=== PATIENT | male | born 1945 | race Caucasian/White ===

== ENCOUNTER 2021-12-01 11:58 | Inpatient (IN) | payer MEDICARE, SELFPAY ==
[2021-12-01 12:40] VITALS: BP 149/69; PULSE 70; RESP 18; TEMP 36.4; O2SAT 98; BMI 41.5
--- NOTE | 2021-12-01 12:50 | DI.RAD.S_ITS ---
PROCEDURE: XR TOE LT MIN 2V INDICATIONS: infection TECHNIQUE: 3 views of the 3rd toe(s) acquired. COMPARISON: None. FINDINGS: Bones: Rarefaction of the distal 3rd phalanx. Amputation taken of the 2nd and 1st distal phalanx. Generalized forefoot osteopenia present as well. Arthritic changes noted in the midfoot Soft tissues: No suspicious soft tissue densities. IMPRESSION: Focal rarefaction of the distal 3rd phalanx with overlying soft tissue swelling, consistent with cellulitis/osteomyelitis. Approved by: Tevin Fall M.D. on 12/01/2021 at 14:04
--- NOTE | 2021-12-01 15:01 | ED.WOUNDLAC ---
HPI - Wound/Laceration <ROSHAN Hernandez - Last Filed: 12/01/21 20:06> General Chief Complaint: Wound/Laceration Stated Complaint: Bad 3rd toe on left foot Time Seen by Provider: 12/01/21 13:46 Source: patient Mode of arrival: Family Vehicle History of Present Illness HPI narrative: 75-year-old male, nonsmoker, with a history of diabetes, presents to the emergency department with left foot 3rd toe suspected infection. Patient had recently seen his restorative coordinator who was able to whittle away at his toenails. Patient saw his family doctor on [place] yesterday who recommended he come into the emergency department for IV antibiotics. Patient denies any recent trauma to the toe but it does have a large scab over the top it. Related Data Home Medications Medication Instructions Recorded Confirmed allopurinol 300 mg tablet 300 mg PO DAILY 12/01/21 12/02/21 allopurinol 300 mg tablet tab 12/01/21 atenolol 100 mg tablet mg 12/01/21 atenolol 100 mg tablet tab PO DAILY 12/01/21 blood sugar diagnostic (OneTouch 12/01/21 12/01/21 Ultra Test strips) calcitriol 0.25 mcg capsule cap 12/01/21 dulaglutide 4.5 mg/0.5 mL ea SUBCUT QWEEK 12/01/21 subcutaneous [facility] ([facility]) furosemide 20 mg tablet tab 2XD 12/01/21 gabapentin 100 mg capsule cap PO 1XD 12/01/21 hydrocodone 7.5 mg-acetaminophen tab PO PRN PRN Abdominal Discomfort 12/01/21 325 mg tablet insulin glargine 100 unit/mL (3 25 unit SUBCUT BEDTIME 12/01/21 12/01/21 mL) subcutaneous pen (Lantus Solostar U-100 Insulin) pravastatin 40 mg tablet tab PO BEDTIME 12/01/21 quinapril 40 mg tablet tab PO DAILY 12/01/21 Allergies Allergy/AdvReac Type Severity Reaction Status Date / Time No Known Drug Allergies Allergy Verified 12/01/21 12:40 Review of Systems <ROSHAN Hernandez - Last Filed: 12/01/21 20:06> Review of Systems Narrative: Narrative: GENERAL: Denies chills, fatigue, fever, sweats. See HPI HEENT: Denies sinus pain, ear pain, sore throat, difficulty swallowing, dizziness. RESPIRATORY: Denies dyspnea, cough, wheezing, sputum. CARDIOVASCULAR: Denies chest pain, palpitations, edema. GASTROINTESTINAL: Denies nausea, vomiting, abdominal pain, diarrhea, constipation. : Denies dysuria, frequency, incontinence, hematuria, urinary retention, flank pain. MSK: Denies weakness, joint pain, or bony pain. SKIN: Endorses decreased sensation of left foot. NEUROLOGIC: Denies weakness, dizziness, headache, numbness, confusion. PSYCHIATRIC: No concerning psychosocial issues. Patient History <ROSHAN Hernandez - Last Filed: 12/01/21 20:06> Social History household members: spouse Smoking Status: Never smoker Smoking Status: Never smoker alcohol intake frequency: 0-2 drinks per day Substance Use Type: does not use Exam <ROSHAN Hernandez - Last Filed: 12/01/21 20:06> Narrative Exam Narrative: Exam Narrative: GENERAL: This is a well-nourished, well-developed patient, in no acute distress HEAD: Atraumatic. Normocephalic. EYES: Pupils equal round and reactive. Extraocular motions intact. No scleral icterus, injection or drainage. ENT: Nose without bleeding, purulent drainage. Throat without erythema, tonsillar hypertrophy or exudate. Airway patent. NECK: Trachea midline. No JVD or lymphadenopathy. Nontender. CARDIOVASCULAR: Regular rate and rhythm without murmurs, peripheral pulses intact, cap refill <2 sec. RESPIRATORY: Breath sounds equal and clear bilaterally. No wheezes, rales, or rhonchi. No cough. No increased respiratory effort. No accessory muscle use. GASTROINTESTINAL: Abdomen soft, non-tender, nondistended without guarding or rebound. No suprapubic pain. MSK: Moves all extremities. Normal range of motion. Left foot partial removal of great toe and 2nd toe. Third toe with large callus like scan on tip. NEURO: A&O x 3. SKIN: Warm, dry. Initial Vital Signs Initial Vital Signs: Vital Signs Temperature 97.5 F L 12/01/21 12:40 Pulse Rate 70 12/01/21 12:40 Respiratory Rate 18 12/01/21 12:40 Blood Pressure 149/69 H 12/01/21 12:40 Pulse Oximetry 98 07/16/22 12:40 Oxygen Delivery Method 12/01/21 12:40 Review <Daquan Womack MD - Last Filed: 12/02/21 08:09> Initial Vital Signs Initial Vital Signs: Vital Signs Temperature 97.5 F L 12/01/21 12:40 Pulse Rate 70 12/01/21 12:40 Respiratory Rate 18 12/01/21 12:40 Blood Pressure 149/69 H 12/01/21 12:40 Pulse Oximetry 98 12/01/21 12:40 Oxygen Delivery Method 12/01/21 12:40 Course <ROSHAN Hernandez - Last Filed: 12/01/21 20:06> Orders Ordered: Acetaminophen (Acetaminophen 325 Mg Tablet) 650 mg PO Q6HR PRN PRN Reason: Fever/Mild Pain (1-3) Dextrose (Dextrose 50 % In Water 25 Gm/50 Ml Syringe) 25 gm IV PRN PRN PRN Reason: Hypoglycemia Gabapentin (Gabapentin 100 Mg Capsule) 100 mg PO BEDTIME [facility] Last Admin: 12/01/21 22:57 Dose: 100 mg Documented By: MS Heparin Sodium (Porcine) (Heparin 5,000 Unit/Ml Vial) 5,000 unit SUBCUT BID [facility] Last Admin: 12/01/21 22:21 Dose: 5,000 unit Documented By: MS Ceftriaxone Sodium 1,000 mg/ (Sodium Chloride) 100 mls @ 200 mls/hr IV Q24H [facility] Last Admin: 12/01/21 22:22 Dose: 200 mls/hr Documented By: MS Sodium Chloride (Normal Saline 0.9%) 250 mls @ 21 mls/hr IV Q24H PRN PRN Reason: Flush Vancomycin HCl (Vancomycin) 1,250 mg in 250 mls @ 250 mls/hr IV Q24H [facility] Insulin Glargine (Insulin Glargine 100 Unit/Ml 3ml Pen) 25 unit SUBCUT BEDTIME [facility] Last Admin: 12/01/21 22:33 Dose: Not Given Documented By: MS Insulin Human Lispro (Insulin Lispro 100 Unit/Ml 3ml Vial) 0 unit SUBCUT ACHS [facility]; Protocol Last Admin: 12/02/21 07:58 Dose: Not Given Documented By: Admin: 12/01/21 22:33 Dose: Not Given Documented By: MS Ondansetron HCl (Ondansetron 4 Mg/2 Ml Inj) 4 mg IV Q8HR PRN PRN Reason: Nausea And Vomiting Vancomycin HCl (Vancomycin Trough) 1 request MIS 1530 [facility] Stop: 12/02/21 15:31 Discontinued Medications Vancomycin HCl/Dextrose (Vancomycin) 2,000 mg in 400 mls @ 200 mls/hr IV NOW ONE Stop: 12/01/21 17:59 Last Infusion: 12/01/21 18:15 Dose: 0 mls/hr Documented By: Admin: 12/01/21 15:59 Dose: 200 mls/hr Documented By: RL Vancomycin HCl (Vancomycin Per Pharmacy) 1 request MISC NOW ONE Stop: 12/01/21 15:14 Consultations Consultation #1: Dr. De Jesus, hospitalist, will accept admission. Vital Signs Vital signs: Vital Signs - 8 hr 12/01/21 12:40 Temperature 97.5 F L Pulse Rate 70 Respiratory Rate 18 Blood Pressure 149/69 H Pulse Oximetry 98 Oxygen Delivery Method Room Air <Daquan Womack MD - Last Filed: 12/02/21 08:09> Orders Ordered: Acetaminophen (Acetaminophen 325 Mg Tablet) 650 mg PO Q6HR PRN PRN Reason: Fever/Mild Pain (1-3) Dextrose (Dextrose 50 % In Water 25 Gm/50 Ml Syringe) 25 gm IV PRN PRN PRN Reason: Hypoglycemia Gabapentin (Gabapentin 100 Mg Capsule) 100 mg PO BEDTIME [facility] Last Admin: 12/01/21 22:57 Dose: 100 mg Documented By: MS Heparin Sodium (Porcine) (Heparin 5,000 Unit/Ml Vial) 5,000 unit SUBCUT BID [facility] Last Admin: 12/01/21 22:21 Dose: 5,000 unit Documented By: MS Ceftriaxone Sodium 1,000 mg/ (Sodium Chloride) 100 mls @ 200 mls/hr IV Q24H [facility] Last Admin: 12/01/21 22:22 Dose: 200 mls/hr Documented By: MS Sodium Chloride (Normal Saline 0.9%) 250 mls @ 21 mls/hr IV Q24H PRN PRN Reason: Flush Vancomycin HCl (Vancomycin) 1,250 mg in 250 mls @ 250 mls/hr IV Q24H [facility] Insulin Glargine (Insulin Glargine 100 Unit/Ml 3ml Pen) 25 unit SUBCUT BEDTIME [facility] Last Admin: 12/01/21 22:33 Dose: Not Given Documented By: MS Insulin Human Lispro (Insulin Lispro 100 Unit/Ml 3ml Vial) 0 unit SUBCUT ACHS [facility]; Protocol Last Admin: 12/02/21 07:58 Dose: Not Given Documented By: Admin: 12/01/21 22:33 Dose: Not Given Documented By: MS Ondansetron HCl (Ondansetron 4 Mg/2 Ml Inj) 4 mg IV Q8HR PRN PRN Reason: Nausea And Vomiting Vancomycin HCl (Vancomycin Trough) 1 request [facility] 1530 [facility] Stop: 12/02/21 15:31 Discontinued Medications Vancomycin HCl/Dextrose (Vancomycin) 2,000 mg in 400 mls @ 200 mls/hr IV NOW ONE Stop: 12/01/21 17:59 Last Infusion: 12/01/21 18:15 Dose: 0 mls/hr Documented By: Admin: 12/01/21 15:59 Dose: 200 mls/hr Documented By: NICHO Vancomycin HCl (Vancomycin Per Pharmacy) 1 request [facility] [place] NOW ONE Stop: 12/01/21 15:14 Vital Signs Vital signs: Vital Signs - 8 hr 12/01/21 12:40 Temperature 97.5 F L Pulse Rate 70 Respiratory Rate 18 Blood Pressure 149/69 H Pulse Oximetry 98 Oxygen Delivery Method Room Air MDM - Wound/Laceration <ROSHAN Hernandez - Last Filed: 12/01/21 20:06> Differential Diagnosis Differential diagnosis: Likely other (Cellulitis or osteomyelitis of left foot 3rd toe) Lab Data Result diagrams: 12/02/21 05:39 12/02/21 05:39 Labs: Lab Results 12/01/21 12/01/21 12/01/21 Range/Units 15:25 15:25 15:25 WBC 7.6 (4.5-11.0) X10^3/uL RBC 3.97 L (4.5-5.9) X10^6/uL Hgb 12.2 L (13.5-17.5) g/dL Hct 36.3 L (41-53) % MCV 91.4 (80-100) fL MCH 30.7 (26-34) PG MCHC 33.6 (30-36) % RDW 14.4 (11.6-14.8) % Plt Count 180 (150-400) X10^3/uL Neut % (Auto) 70.1 (50-75) % Lymph % (Auto) 20.1 L (25-40) % [place] % (Auto) 7.4 (3-14) % Eos % (Auto) 1.9 L (2-4) % Baso % (Auto) 0.5 (0-2) % Neut # (Auto) 5300 (1402-4164) /uL Lymph # (Auto) 1500 (3598-6070) /uL [place] # (Auto) 600 (0-900) /uL Eos # (Auto) 100 (0-450) /uL Baso # (Auto) 0 (0-100) /uL Sodium 138 (137-145) mmol/L Potassium 4.6 (3.4-5.1) mmol/L Chloride 106 (98-107) mmol/L Carbon Dioxide 26 (22-32) mmol/L BUN 43 H (9-20) mg/dL Creatinine 2.02 H (0.66-1.25) mg/dL Estimated GFR 33 L (>60) mL/min BUN/Creatinine Ratio 21.3 (6-22) Glucose 79 L (80-110) mg/dL Lactate 0.5 L (0.7-2.1) mmol/L Calcium 9.6 (8.4-10.2) mg/dL Total Bilirubin 0.8 (0.2-1.3) mg/dL AST 32 (17-59) IU/L ALT 20 (<50) IU/L Alkaline Phosphatase 81 (38-126) U/L Total Protein 7.3 (6.3-8.2) g/dL Albumin 4.1 (3.5-5.0) g/dL Globulin 3.2 (1.7-4.1) g/dL Albumin/Globulin Ratio 1.3 (1.0-2.8) Procalcitonin 0.17 (<0.5) ng/mL SARS-CoV-2 (PCR) (Negative) 12/01/21 Range/Units 17:33 WBC (4.5-11.0) X10^3/uL RBC (4.5-5.9) X10^6/uL Hgb (13.5-17.5) g/dL Hct (41-53) % MCV (80-100) fL MCH (26-34) PG MCHC (30-36) % RDW (11.6-14.8) % Plt Count (150-400) X10^3/uL Neut % (Auto) (50-75) % Lymph % (Auto) (25-40) % [place] % (Auto) (3-14) % Eos % (Auto) (2-4) % Baso % (Auto) (0-2) % Neut # (Auto) (2821-2824) /uL Lymph # (Auto) (1658-1101) /uL [place] # (Auto) (0-900) /uL Eos # (Auto) (0-450) /uL Baso # (Auto) (0-100) /uL Sodium (137-145) mmol/L Potassium (3.4-5.1) mmol/L Chloride (98-107) mmol/L Carbon Dioxide (22-32) mmol/L BUN (9-20) mg/dL Creatinine (0.66-1.25) mg/dL Estimated GFR (>60) mL/min BUN/Creatinine Ratio (6-22) Glucose (80-110) mg/dL Lactate (0.7-2.1) mmol/L Calcium (8.4-10.2) mg/dL Total Bilirubin (0.2-1.3) mg/dL AST (17-59) IU/L ALT (<50) IU/L Alkaline Phosphatase (38-126) U/L Total Protein (6.3-8.2) g/dL Albumin (3.5-5.0) g/dL Globulin (1.7-4.1) g/dL Albumin/Globulin Ratio (1.0-2.8) Procalcitonin (<0.5) ng/mL SARS-CoV-2 (PCR) Negative (Negative) Imaging Data Extremity x-ray #1: Radiologist's Impression: [address] [address] XRay Report Signed Patient: Matty Valero MR#: [id number] : 1945 Acct:[id number] Age/Sex: 75 / M Date of Service: 12/01/21 Loc: ED Accession Number: [id number] ?? Procedure: XR toe LT min 2V Ordering Provider: Daquan Womack MD PROCEDURE:? XR TOE LT MIN 2V ? INDICATIONS:? infection ? TECHNIQUE:? 3 views of the 3rd toe(s) acquired.? ? COMPARISON:? None. ? FINDINGS:? ? Bones:? Rarefaction of the distal 3rd phalanx.? Amputation taken of the 2nd and 1st distal phalanx.? Generalized forefoot osteopenia present as well.? Arthritic changes noted in the midfoot ? Soft tissues:? No suspicious soft tissue densities.? ? IMPRESSION:? ? Focal rarefaction of the distal 3rd phalanx with overlying soft tissue swelling, consistent with cellulitis/osteomyelitis. ? ? ? Approved by: Tevin Fall M.D. on 12/01/2021 at 14:04? MDM Narrative Medical decision making narrative: 75-year-old male with history of diabetes presents to the emergency department with left foot 3rd toe concerns. X-ray consistent with cellulitis/osteomyelitis. Labs reveal anemia and poor kidney function. Procalcitonin was negative and lactate was 0.5. Started on vancomycin. Consulted hospitalist, Dr. De Jesus, who will accept admission. Discussed plan of care with patient, who is agreeable with course of action. <Daquan Womack MD - Last Filed: 12/02/21 08:09> Lab Data Labs: Lab Results 12/01/21 12/01/21 12/01/21 Range/Units 15:25 15:25 15:25 WBC 7.6 (4.5-11.0) X10^3/uL RBC 3.97 L (4.5-5.9) X10^6/uL Hgb 12.2 L (13.5-17.5) g/dL Hct 36.3 L (41-53) % MCV 91.4 (80-100) fL MCH 30.7 (26-34) PG MCHC 33.6 (30-36) % RDW 14.4 (11.6-14.8) % Plt Count 180 (150-400) X10^3/uL Neut % (Auto) 70.1 (50-75) % Lymph % (Auto) 20.1 L (25-40) % [place] % (Auto) 7.4 (3-14) % Eos % (Auto) 1.9 L (2-4) % Baso % (Auto) 0.5 (0-2) % Neut # (Auto) 5300 (6405-0640) /uL Lymph # (Auto) 1500 (3887-1542) /uL [place] # (Auto) 600 (0-900) /uL Eos # (Auto) 100 (0-450) /uL Baso # (Auto) 0 (0-100) /uL Sodium 138 (137-145) mmol/L Potassium 4.6 (3.4-5.1) mmol/L Chloride 106 (98-107) mmol/L Carbon Dioxide 26 (22-32) mmol/L BUN 43 H (9-20) mg/dL Creatinine 2.02 H (0.66-1.25) mg/dL Estimated GFR 33 L (>60) mL/min BUN/Creatinine Ratio 21.3 (6-22) Glucose 79 L (80-110) mg/dL Lactate 0.5 L (0.7-2.1) mmol/L Calcium 9.6 (8.4-10.2) mg/dL Total Bilirubin 0.8 (0.2-1.3) mg/dL AST 32 (17-59) IU/L ALT 20 (<50) IU/L Alkaline Phosphatase 81 (38-126) U/L Total Protein 7.3 (6.3-8.2) g/dL Albumin 4.1 (3.5-5.0) g/dL Globulin 3.2 (1.7-4.1) g/dL Albumin/Globulin Ratio 1.3 (1.0-2.8) Procalcitonin 0.17 (<0.5) ng/mL SARS-CoV-2 (PCR) (Negative) 12/01/21 Range/Units 17:33 WBC (4.5-11.0) X10^3/uL RBC (4.5-5.9) X10^6/uL Hgb (13.5-17.5) g/dL Hct (41-53) % MCV (80-100) fL MCH (26-34) PG MCHC (30-36) % RDW (11.6-14.8) % Plt Count (150-400) X10^3/uL Neut % (Auto) (50-75) % Lymph % (Auto) (25-40) % [place] % (Auto) (3-14) % Eos % (Auto) (2-4) % Baso % (Auto) (0-2) % Neut # (Auto) (6441-7293) /uL Lymph # (Auto) (3276-4249) /uL [place] # (Auto) (0-900) /uL Eos # (Auto) (0-450) /uL Baso # (Auto) (0-100) /uL Sodium (137-145) mmol/L Potassium (3.4-5.1) mmol/L Chloride (98-107) mmol/L Carbon Dioxide (22-32) mmol/L BUN (9-20) mg/dL Creatinine (0.66-1.25) mg/dL Estimated GFR (>60) mL/min BUN/Creatinine Ratio (6-22) Glucose (80-110) mg/dL Lactate (0.7-2.1) mmol/L Calcium (8.4-10.2) mg/dL Total Bilirubin (0.2-1.3) mg/dL AST (17-59) IU/L ALT (<50) IU/L Alkaline Phosphatase (38-126) U/L Total Protein (6.3-8.2) g/dL Albumin (3.5-5.0) g/dL Globulin (1.7-4.1) g/dL Albumin/Globulin Ratio (1.0-2.8) Procalcitonin (<0.5) ng/mL SARS-CoV-2 (PCR) Negative (Negative) Discharge Plan Departure Patient Disposition: Admitted As Inpatient Clinical Impression: Osteomyelitis of foot, left, acute Admit Date/Time: 12/01/21 17:38 Admit Provider: Tiarra De Jesus <Daquan Womack MD - Last Filed: 12/02/21 08:09> Cosign ED Attending Maribellature Attestation: I was immediately available in the department for consultation. ?This documentation has been reviewed and I agree with assessment and plan. Supervised by Daquan Womack MD
[2021-12-01 15:35] LABS: Add Manual Diff / Slide Review NO; Basophils Absolute Auto 0 /uL (0-100); Basophils Percent Auto 0.5 % (0-2); Eosinophils Absolute Auto 100 /uL (0-450); Eosinophils Percent Auto 1.9 % (2-4); Hematocrit 36.3 % (41-53); Hemoglobin 12.2 g/dL (13.5-17.5); Lymphocytes Absolute Auto 1500 /uL (1100-4500); Lymphocytes Percent Auto 20.1 % (25-40); Mean Corpuscular HGB Conc 33.6 % (30-36); Mean Corpuscular Hemoglobin 30.7 PG (26-34); Mean Corpuscular Volume 91.4 fL (80-100); Monocytes Absolute Auto 600 /uL (0-900); Monocytes Percent Auto 7.4 % (3-14); Neutrophils Absolute Auto 5300 /uL (1500-7000); Neutrophils Percent Auto 70.1 % (50-75); Platelet Count 180 X10^3/uL (150-400); Red Blood Cell Count 3.97 X10^6/uL (4.5-5.9); Red Cell Distribution Width 14.4 % (11.6-14.8); White Blood Cell Count 7.6 X10^3/uL (4.5-11.0)
[2021-12-01 15:44] LABS: Alanine Aminotransferase 20 IU/L (<50); Albumin 4.1 g/dL (3.5-5.0); Albumin Globulin Ratio 1.3 (1.0-2.8); Alkaline Phosphatase 81 U/L (38-126); Aspartate Aminotransferase 32 IU/L (17-59); BUN Creatinine Ratio 21.3 (6-22); Bilirubin Total 0.8 mg/dL (0.2-1.3); Blood Urea Nitrogen 43 mg/dL (9-20); Calcium 9.6 mg/dL (8.4-10.2); Carbon Dioxide 26 mmol/L (22-32); Chloride 106 mmol/L (98-107); Estimated Glomerular Filt Rate 33 mL/min (>60); Globulin 3.2 g/dL (1.7-4.1); Glucose 79 mg/dL (80-110); HEMOLYSIS < 15 (0-50); Potassium 4.6 mmol/L (3.4-5.1); Sodium 138 mmol/L (137-145); Total Protein 7.3 g/dL (6.3-8.2)
[2021-12-01 15:45] LABS: Lactate (Lactic Acid) 0.5 mmol/L (0.7-2.1)
[2021-12-01] MEDS: VANCOMYCIN 2,000 MG/400 ML PIGGYBACK 200 MG IV (15:59)
[2021-12-01 16:01] LABS: Procalcitonin 0.17 ng/mL (<0.5)
[2021-12-01 17:50] LABS: COVID19 -Nasal RAPID Negative (Negative)
[2021-12-01 19:35] VITALS: BP 176/69; PULSE 77; RESP 18; TEMP 35.8; O2SAT 98
[2021-12-01 19:47] VITALS: BMI 41.5
--- NOTE | 2021-12-01 21:45 | P.HP_ITS ---
History of Present Illness History of Present Illness Date Patient Seen: 12/01/21 Time Patient Seen: 21:00 Chief complaint: Bad 3rd toe on left foot Narrative: Mr. Valero is a 75M with PMH TYpe 2 DM with peripheral neuropathy, s/p multiple amputations of digits for osteomyelitis, PAD, morbid obesity, HTN, CKD stage 3, LUIS who presents with infected left 3rd toe. He states approximately one month ago he developed a blister on his left 3rd toe. He has two partial digit amputations on both his left and right feet. He had this blister debrided. He then stubbed his toe soon after that and developed an injury to his toe. He is from [place], and has received his primary care there, but this injury has occurred while traveling and he saw a business services representative in [place]. He has received two separate 10 day prescriptions, possibly of Keflex, for an infected toe. He has not noted any significant change in his toe. He has been on the [facility] and saw a provider there who was concerned for continued infection and recommended he come to the ED. He has not noted any fevers/chills. No nausea, vomiting. No toe pain or discharge In the ED workup was done, vitals with no fever. Labs notable for WBC 7.6, hgb 12.2, plts 180. Na 138, BUN 43, creatinine 2.02. Procalcitonin 0.17. Toe xray shows focal rarefaction of the distal 3rd phalanx. He was ordered for antibiotics and admitted for further treatment. Social history: no smoking, no drinking Family history: sisters with diabetes Patient History Family & Social History Social History: household members spouse Prior Living Arrangements House Safety & Behavioral: Feels Safe in Current Yes Environment Been Physically Hurt or No Threatened By a Person Tobacco & Substance use: Smoking Status Never smoker alcohol intake frequency 0-2 drinks per day Substance Use Type does not use Meds Home Medications and Allergies Home Medications Medication Instructions Recorded Confirmed Type allopurinol 300 mg tablet mg PO DAILY 12/01/21 History allopurinol 300 mg tablet tab 12/01/21 History atenolol 100 mg tablet mg 12/01/21 History atenolol 100 mg tablet tab PO DAILY 12/01/21 History blood sugar diagnostic (OneTouch 12/01/21 12/01/21 History Ultra Test strips) calcitriol 0.25 mcg capsule cap 12/01/21 History dulaglutide 4.5 mg/0.5 mL ea SUBCUT QWEEK 12/01/21 History subcutaneous pen injector ([facility]ulicity) furosemide 20 mg tablet tab 2XD 12/01/21 History gabapentin 100 mg capsule cap PO 1XD 12/01/21 History hydrocodone 7.5 mg-acetaminophen tab PO PRN PRN Abdominal Discomfort 12/01/21 History 325 mg tablet insulin glargine 100 unit/mL (3 25 unit SUBCUT BEDTIME 12/01/21 12/01/21 History mL) subcutaneous pen (Lantus Solostar U-100 Insulin) pravastatin 40 mg tablet tab PO BEDTIME 12/01/21 History quinapril 40 mg tablet tab PO DAILY 12/01/21 History Allergies Allergy/AdvReac Type Severity Reaction Status Date / Time No Known Drug Allergies Allergy Verified 12/01/21 12:40 Review of Systems Review of Systems Narrative: 14 systems reviewed and negative aside from what is noted in HPI Exam Vital Signs (past 8 hours): - 12/01/21 19:35 12/01/21 19:47 Temperature 96.5 F L Pulse Rate 77 Respiratory Rate 18 Blood Pressure 176/69 H Pulse Oximetry 98 Oxygen Delivery Method Room Air Oxygen Delivery Method Room Air Narrative Exam Narrative: GEN: no acute distress HEENT: moist mucous membranes, PERRL NECK: trachea midline, no JVD CV: regular rhythm and rate, no murmurs PULM: clear bilaterally ABD: soft, nontender, nondistended, no organomegaly, normal bowel sounds EXT: warm and well perfused, left lower extremity with 2+ edema, multiple well healed distal lower extremity digit amputations, 3rd left toe with distal dried left ulcer with minimal redness and no tenderness NEURO: awake, alert, oriented, no focal deficits Objective Labs Result Diagrams: 12/01/21 15:25 12/01/21 15:25 Labs: Laboratory Results - last 24 hr 12/01/21 12/01/21 12/01/21 15:25 15:25 15:25 WBC 7.6 RBC 3.97 L Hgb 12.2 L Hct 36.3 L MCV 91.4 MCH 30.7 MCHC 33.6 RDW 14.4 Plt Count 180 Neut % (Auto) 70.1 Lymph % (Auto) 20.1 L [place] % (Auto) 7.4 Eos % (Auto) 1.9 L Baso % (Auto) 0.5 Neut # (Auto) 5300 Lymph # (Auto) 1500 [place] # (Auto) 600 Eos # (Auto) 100 Baso # (Auto) 0 Sodium 138 Potassium 4.6 Chloride 106 Carbon Dioxide 26 BUN 43 H Creatinine 2.02 H Estimated GFR 33 L BUN/Creatinine Ratio 21.3 Glucose 79 L Lactate 0.5 L Calcium 9.6 Total Bilirubin 0.8 AST 32 ALT 20 Alkaline Phosphatase 81 Total Protein 7.3 Albumin 4.1 Globulin 3.2 Albumin/Globulin Ratio 1.3 Procalcitonin 0.17 SARS-CoV-2 (PCR) 12/01/21 17:33 WBC RBC Hgb Hct MCV MCH MCHC RDW Plt Count Neut % (Auto) Lymph % (Auto) [place] % (Auto) Eos % (Auto) Baso % (Auto) Neut # (Auto) Lymph # (Auto) [place] # (Auto) Eos # (Auto) Baso # (Auto) Sodium Potassium Chloride Carbon Dioxide BUN Creatinine Estimated GFR BUN/Creatinine Ratio Glucose Lactate Calcium Total Bilirubin AST ALT Alkaline Phosphatase Total Protein Albumin Globulin Albumin/Globulin Ratio Procalcitonin SARS-CoV-2 (PCR) Negative Assessment & Plan Assessment & Plan narrative: Mr. Valero is a 75M with PMH DM, obesity, CKD, LUIS who presents with left toe infection consistent with osteomyelitis 1. Acute osteomyelitis -left 3rd toe infection, with radiographic findings consistent with osteomyelitis -continue vancomycin, ceftriaxone -will order MRI to better evaluate extent of osteo -order artieral doppler to eval for history of PAD -ESR, CRP ordered -pending results decision will need to be done to determine if six weeks of abx vs amputation is clinically appropriate 2. 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 Morbid obesity -encourage weight loss -would help diabetes control to help manage complications 4. Hypertension -continue wendy inhibitor and beta-augusto 5. CKD stage 3 -creatinine at baseline with patient stating gfr is in 30s -monitor closely 6. Hyperlipidemia -continue statin 7. LUIS -continue CPAP CODE: Full Proxy: Beti Valero I have utilized all avaialble resources to reconcile the patient's home medications Time Spent With Patient Critical Care time: I spent a total of [] minutes of critical care time on this patient's care today; this time is exclusive of procedural time. Quality VTE Deep Vein Thrombosis/Pulmonary Embolism Present on Admission: No MIPS - Admit I confirm the patient?s Advance Care Plan is present, Code status is documented, Surrogate decision maker is in patient?s record [If Yes, STOP here]: Yes
--- NOTE | 2021-12-01 21:46 | DI.MRI.S_ITS ---
PROCEDURE: MRFOOT LT WO CON INDICATIONS: left foot osteomyelitis of 3rd toe? TECHNIQUE: Noncontrast sagittal T1 spin echo and T2 fast spin echo with fat saturation, long-axis T1 spin echo and T2 fast spin echo with fat saturation, short-axis T1 spin echo and T2 fast spin echo with fat saturation through the forefoot. COMPARISON: [facility], CR, XR TOE LT MIN 2V, 12/01/2021, 12:41. FINDINGS: Image quality: Excellent. Bones and joints: Marrow edema noted in the 3rd distal, middle and proximal phalanx consistent with osteomyelitis. The 3rd metatarsal appears within normal limits. There is additional mild marrow edema in the head of the 1st proximal phalanx as well. There has been amputation of the 2nd and 1st distal phalanx previously. Arthritic changes noted in the intertarsal joints of the mid foot. Soft tissues: Soft tissue edema noted in the dorsal subcutaneous fat. The visualized plantar foot muscles demonstrate normal signal and bulk. Visualized flexor and extensor tendons appear intact, without tenosynovitis. No soft tissue ganglion cysts or bursal fluid collections. Sagittal images demonstrate no evidence for plantar plate tears. IMPRESSION: Third toe osteomyelitis involves the distal, middle and proximal phalanx. Third metatarsal within normal limits. Mild edema in the head of the 1st proximal phalanx may reflect prior trauma or recent amputation noted. Early osteomyelitis would be a differential. Approved by: Tevin Fall M.D. on 12/02/2021 at 9:45
[2021-12-01] MEDS: HEPARIN 5,000 UNIT/ML VIAL 5000 UNIT SUBCUT (22:21)
[2021-12-01] MEDS: cefTRIAXone 1,000 MG in SODIUM CHLORIDE 0.9% 100 ML 200 MG IV (22:22)
[2021-12-01] MEDS: GABAPENTIN 100 MG CAPSULE PO (22:57)
--- NOTE | 2021-12-01 23:18 | RT ---
Patient own home CPAP set up. Patient will placed self on and off as needed.
[2021-12-02 05:33] VITALS: BP 140/70; PULSE 67; RESP 18; TEMP 36.3; O2SAT 99
[2021-12-02 05:48] LABS: Add Manual Diff / Slide Review NO; Basophils Absolute Auto 0 /uL (0-100); Basophils Percent Auto 0.6 % (0-2); Eosinophils Absolute Auto 200 /uL (0-450); Eosinophils Percent Auto 3.1 % (2-4); Hematocrit 35.3 % (41-53); Hemoglobin 11.9 g/dL (13.5-17.5); Lymphocytes Absolute Auto 1300 /uL (1100-4500); Lymphocytes Percent Auto 21.3 % (25-40); Mean Corpuscular HGB Conc 33.6 % (30-36); Mean Corpuscular Hemoglobin 30.6 PG (26-34); Mean Corpuscular Volume 91.1 fL (80-100); Monocytes Absolute Auto 500 /uL (0-900); Monocytes Percent Auto 8.5 % (3-14); Neutrophils Absolute Auto 4000 /uL (1500-7000); Neutrophils Percent Auto 66.5 % (50-75); Platelet Count 166 X10^3/uL (150-400); Red Blood Cell Count 3.87 X10^6/uL (4.5-5.9); Red Cell Distribution Width 14.5 % (11.6-14.8)
[2021-12-02 05:58] LABS: BUN Creatinine Ratio 23.2 (6-22); Blood Urea Nitrogen 41 mg/dL (9-20); Calcium 9.1 mg/dL (8.4-10.2); Carbon Dioxide 22 mmol/L (22-32); Chloride 108 mmol/L (98-107); Estimated Glomerular Filt Rate 39 mL/min (>60); Glucose 86 mg/dL (80-110); HEMOLYSIS < 15 (0-50); Potassium 4.5 mmol/L (3.4-5.1); Sodium 139 mmol/L (137-145)
[2021-12-02 05:59] LABS: C-Reactive Protein Quant 0.9 mg/dL (<1.0)
[2021-12-02 06:17] LABS: Erythrocyte Sedimentation Rate 32 MM/HR (0-15)
--- NOTE | 2021-12-02 08:00 | DI.US.S_ITS ---
PROCEDURE: US ARTERIAL DUPLEX LE LT INDICATIONS: LEFT FOOT OSTEOMYELITIS; PAD TECHNIQUE: Color and pulse Doppler interrogation was performed of the left lower extremity arterial system, with image documentation. COMPARISON: None. FINDINGS: Common femoral artery: 134 cm/sec, with biphasic flow. Deep femoral artery: 50 cm/sec, with biphasic flow. Proximal superficial femoral artery: 66 cm/sec, with biphasic flow. Mid superficial femoral artery: 104 cm/sec, with biphasic flow. Distal superficial femoral artery: 96 cm/sec, with biphasic flow. Popliteal artery: 74 cm/sec, with triphasic flow. Posterior tibial artery: Nonvisualized Anterior tibial artery/dorsalis pedis: 94 cm/sec, with monophasic flow. Bell-scale imaging description: Mild atherosclerotic plaque IMPRESSION: Monophasic waveform with appropriate peak systolic velocity in the anterior tibial artery suggests an element of distal peripheral vascular disease Approved by: Tevin Fall M.D. on 12/02/2021 at 9:37
[2021-12-02 09:40] VITALS: O2SAT 99
[2021-12-02] MEDS: HEPARIN 5,000 UNIT/ML VIAL 5000 UNIT SUBCUT ×2 (10:00→20:23)
--- NOTE | 2021-12-02 10:20 | PM.PN.1 ---
Subjective Subjective Date Patient Seen: 12/02/21 Time Patient Seen: 12:00 Interval history: Reports mild discomfort to the left 3rd toe but otherwise no complaints. Denies fever/chills. Exam Vital Signs (past 8 hours): - 12/02/21 05:33 12/02/21 09:40 Temperature 97.3 F L Pulse Rate 67 Respiratory Rate 18 Blood Pressure 140/70 Pulse Oximetry 99 99 Oxygen Delivery Method Room Air Oxygen Flow Rate 0 Oxygen Delivery Method Room Air Oxygen Flow Rate 0 Narrative Exam Narrative: GEN: no acute distress HEENT: moist mucous membranes, PERRL NECK: trachea midline, no JVD CV: regular rhythm and rate, no murmurs PULM: clear bilaterally ABD: soft, nontender, nondistended, no organomegaly, normal bowel sounds EXT: warm and well perfused, left lower extremity with 2+ edema, multiple well healed distal lower extremity digit amputations, 3rd left toe with distal dried left ulcer with minimal redness and no tenderness NEURO: awake, alert, oriented, no focal deficits Objective Labs Result Diagrams: 12/02/21 05:39 12/02/21 05:39 Labs: Laboratory Results - last 24 hr 12/01/21 12/01/21 12/01/21 15:25 15:25 15:25 WBC 7.6 RBC 3.97 L Hgb 12.2 L Hct 36.3 L MCV 91.4 MCH 30.7 MCHC 33.6 RDW 14.4 Plt Count 180 Neut % (Auto) 70.1 Lymph % (Auto) 20.1 L [place] % (Auto) 7.4 Eos % (Auto) 1.9 L Baso % (Auto) 0.5 Neut # (Auto) 5300 Lymph # (Auto) 1500 [place] # (Auto) 600 Eos # (Auto) 100 Baso # (Auto) 0 ESR Sodium 138 Potassium 4.6 Chloride 106 Carbon Dioxide 26 BUN 43 H Creatinine 2.02 H Estimated GFR 33 L BUN/Creatinine Ratio 21.3 Glucose 79 L Lactate 0.5 L Calcium 9.6 Total Bilirubin 0.8 AST 32 ALT 20 Alkaline Phosphatase 81 C-Reactive Protein Total Protein 7.3 Albumin 4.1 Globulin 3.2 Albumin/Globulin Ratio 1.3 Procalcitonin 0.17 SARS-CoV-2 (PCR) 12/01/21 12/02/21 12/02/21 17:33 05:39 05:39 WBC RBC Hgb Hct MCV MCH MCHC RDW Plt Count Neut % (Auto) Lymph % (Auto) [place] % (Auto) Eos % (Auto) Baso % (Auto) Neut # (Auto) Lymph # (Auto) [place] # (Auto) Eos # (Auto) Baso # (Auto) ESR 32 H Sodium Potassium Chloride Carbon Dioxide BUN Creatinine Estimated GFR BUN/Creatinine Ratio Glucose Lactate Calcium Total Bilirubin AST ALT Alkaline Phosphatase C-Reactive Protein 0.9 Total Protein Albumin Globulin Albumin/Globulin Ratio Procalcitonin SARS-CoV-2 (PCR) Negative 12/02/21 12/02/21 05:39 05:39 WBC 6.0 RBC 3.87 L Hgb 11.9 L Hct 35.3 L MCV 91.1 MCH 30.6 MCHC 33.6 RDW 14.5 Plt Count 166 Neut % (Auto) 66.5 Lymph % (Auto) 21.3 L [place] % (Auto) 8.5 Eos % (Auto) 3.1 Baso % (Auto) 0.6 Neut # (Auto) 4000 Lymph # (Auto) 1300 [place] # (Auto) 500 Eos # (Auto) 200 Baso # (Auto) 0 ESR Sodium 139 Potassium 4.5 Chloride 108 H Carbon Dioxide 22 BUN 41 H Creatinine 1.77 H Estimated GFR 39 L BUN/Creatinine Ratio 23.2 H Glucose 86 Lactate Calcium 9.1 Total Bilirubin AST ALT Alkaline Phosphatase C-Reactive Protein Total Protein Albumin Globulin Albumin/Globulin Ratio Procalcitonin SARS-CoV-2 (PCR) [facility] Social History household members: spouse Smoking Status: Never smoker Assessment & Plan Assessment & Plan narrative: Mr. Valero is a 75M with PMH DM, obesity, CKD, LUIS who presents with left toe infection consistent with osteomyelitis 1. Acute osteomyelitis -left 3rd toe infection, with radiographic findings on x-ray and MRI consistent with osteomyelitis. No abscess. -continue vancomycin, ceftriaxone -arterial Doppler with element of distal peripheral vascular disease of left anterior tibial artery -ESR 32, CRP 0.9 -ortho consulted who will see patient on 12/03 and told to make him NPO midnight -follow-up blood cultures 2. 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 Morbid obesity -encourage weight loss -would help diabetes control to help manage complications 4. Hypertension -continue wendy inhibitor and beta-augusto 5. CKD stage 3 -creatinine at baseline with patient stating gfr is in 30s -monitor closely 6. Hyperlipidemia -continue statin 7. LUIS -continue CPAP CODE: Full Proxy: Beti Valero I have utilized all avaialble resources to reconcile the patient's home medications Time Spent With Patient Critical Care time: I spent a total of [] minutes of critical care time on this patient's care today; this time is exclusive of procedural time. Quality VTE Deep Vein Thrombosis/Pulmonary Embolism Present on Admission: No
[2021-12-02 11:07] LABS: Hemoglobin A1C% w Est Avg Glu 7.5 % (4.0-6.0)
[2021-12-02] MEDS: INSULIN LISPRO 100 UNIT/ML 3ML VIAL SUBCUT (12:44)
[2021-12-02 13:00] VITALS: BP 132/62; PULSE 68; RESP 18; TEMP 36.2; O2SAT 97
--- NOTE | 2021-12-02 13:04 | CM.DANOTE ---
DCP: Case received, EMR reviewed. Patient was out having his MRI, but spouse, Beti, was in the room. Introduced self and role. Was able to obtain information from spouse regarding patient's baseline activity level, health, as well as their current living situation. DCP assessment completed with information currently available. Patient is a 75 year old male who admitted yesterday afternoon to the care of the hospitalist team. PCP: Provider in [place] Payer: confirmed: [employer] Medicare. Patient came to the hospital via private vehicle, with history of diabetes. Patient did see a provider in Friday, due to concerns about his toe possibly being infected. According to notes, patient denied trauma, but did have a large scab over the area. confirmed that patient has had his other toes amputated before. Patient had MRI, is noted to have osteomyelitis. Met with patient's spouse, Beti, who was in the room, since patient was having MRI. Confirmed that patient is independent, and they have a home in [place], [place], where his primary care provider is. He does see a provider on [place] if needed, was recommended to come here for IV ABO. Patient and spouse also have a cabin on [address] [place] that they live during the summer months. It is noted that ESR/CRP was ordered, and will determine if six weeks of abo versus amputation is appropriate. P: DCP to follow for needs. If patient does need IV ABO, will need to see who can follow, or if patient decides to go back to [place] for treatment. Vane Santoro RN/Automobile T[employer] Builder Discharge Planning/Care Management CM Discharge Assessment Start: 12/02/21 13:02 Freq: Status: Active Protocol: Document 12/02/21 13:02 (Rec: 12/02/21 13:04 [id number]) Discharge Planning Assessment Assigned Organ Teacher Vane Santoro RN/Automobile Tire Builder Advance Directives? Yes Advance Directives on File Yes History Provided By Patient,Family Member,Medical Record Prior Living Arrangements House Household Members spouse Type of transporation used prior to Drives own vehicle admit Independent with ADL's Yes Is patient alert and oriented? Yes Caregiver for Another No Comment Patient's rehab trainer is in [place], and if patient will need keno terminal operator ABO, will be a barrier Discharge Plan Home Transportation Arrangement Spouse Referrals Initiated Other Additional Comment Will have to discuss skilled nursing IV ABO. Whiteboard Updated in Patient Room with Yes name and ext. # of Organ Teacher Review Status In Process Next Review Type Continued Stay Review
--- NOTE | 2021-12-02 14:34 | PT-IP ANOTE ---
Received PT orders and reviewed the chart. Pt has had multiple toe amputations and now has osteomyelitis left 3rd toe. He may be taken to OR tomorrow. Discussed pt with RN and hospitalist who express no concerns with pt's mobility and agree with PT decision to discharge therapy orders at this time. PT remains available for consult after surgery if appropriate.
[2021-12-02] MEDS: atenoloL 50 MG TABLET 100 MG PO (14:58)
[2021-12-02] MEDS: allopurinoL 300 MG TABLET PO (14:58)
[2021-12-02 17:09] LABS: Vancomycin Trough 7.8 ug/mL (10-20)
[2021-12-02] MEDS: VANCOMYCIN TROUGH 1 REQUEST MISC (18:08)
[2021-12-02] MEDS: VANCOMYCIN 1,250 MG/250 ML PIGGYBACK 250 MG IV (18:09)
[2021-12-02] MEDS: SODIUM CHLORIDE 0.9% 250 ML 21 ML IV (18:11)
[2021-12-02] MEDS: cefTRIAXone 1,000 MG in SODIUM CHLORIDE 0.9% 100 ML 200 MG IV (19:33)
[2021-12-02 19:43] VITALS: BP 123/56; PULSE 71; RESP 16; TEMP 36.5; O2SAT 99
[2021-12-02 19:46] VITALS: O2SAT 99
[2021-12-02] MEDS: GABAPENTIN 100 MG CAPSULE PO (20:23)
[2021-12-02] MEDS: INSULIN GLARGINE 100 UNIT/ML 3ML PEN 25 UNIT SUBCUT (20:23)
[2021-12-02] MEDS: SODIUM CHLORIDE 0.9% FLUSH 10 ML IV (20:24)
[2021-12-02] MEDS: PRAVASTATIN 20 MG TABLET 40 MG PO (20:24)
--- NOTE | 2021-12-02 22:03 | PC.NURSE ---
Patient is alert and oriented. Breath sounds CTA with RA sat of 99%. HRR. Denies nausea. BT present and reports having had BM earlier today. Denies dysuria, frequency or urgency with urination. Is able to move himself in bed and gets up to bathroom independently. Does report some unsteadiness when initially getting up and has pain in left foot with weight bearing; instructed to call for assistance if increased weakness or unsteadiness. Has chronic 1+ left lower extremity/foot edema. Ulcered area to left 3rd toe noted with minimal redness and no drainage. Calf SCD's are currently not available so is wearing bilateral foot SCD's. Fall risk score is moderate. Spouse rooming in.
[2021-12-02] MEDS: diphenhydrAMINE 25 MG TABLET PO (23:55)
[2021-12-02] MEDS: ACETAMINOPHEN 325 MG TABLET 975 MG PO (23:56)
[2021-12-03 05:00] VITALS: BP 121/57; PULSE 67; RESP 16; TEMP 36.9; O2SAT 99
[2021-12-03 05:55] LABS: INR 1.2 (0.9-1.3); Prothrombin Time 13.2 SECONDS (10.1-12.7)
[2021-12-03 06:00] LABS: Add Manual Diff / Slide Review NO; Basophils Absolute Auto 0 /uL (0-100); Basophils Percent Auto 0.4 % (0-2); Eosinophils Absolute Auto 200 /uL (0-450); Eosinophils Percent Auto 4.2 % (2-4); Hematocrit 35.2 % (41-53); Hemoglobin 11.7 g/dL (13.5-17.5); Lymphocytes Absolute Auto 1500 /uL (1100-4500); Lymphocytes Percent Auto 26.6 % (25-40); Mean Corpuscular HGB Conc 33.3 % (30-36); Mean Corpuscular Hemoglobin 30.6 PG (26-34); Mean Corpuscular Volume 91.6 fL (80-100); Monocytes Absolute Auto 600 /uL (0-900); Monocytes Percent Auto 9.5 % (3-14); Neutrophils Absolute Auto 3400 /uL (1500-7000); Neutrophils Percent Auto 59.3 % (50-75); Platelet Count 164 X10^3/uL (150-400); Red Blood Cell Count 3.84 X10^6/uL (4.5-5.9); Red Cell Distribution Width 14.7 % (11.6-14.8); White Blood Cell Count 5.8 X10^3/uL (4.5-11.0)
[2021-12-03 06:04] LABS: BUN Creatinine Ratio 21.7 (6-22); Blood Urea Nitrogen 38 mg/dL (9-20); Calcium 8.9 mg/dL (8.4-10.2); Carbon Dioxide 19 mmol/L (22-32); Chloride 111 mmol/L (98-107); Estimated Glomerular Filt Rate 40 mL/min (>60); Glucose 91 mg/dL (80-110); HEMOLYSIS < 15 (0-50); Potassium 4.6 mmol/L (3.4-5.1); Sodium 138 mmol/L (137-145)
[2021-12-03 07:00] VITALS: O2SAT 96
[2021-12-03 09:16] VITALS: BP 120/58; PULSE 65; RESP 18; TEMP 36.5; O2SAT 100
[2021-12-03] MEDS: allopurinoL 300 MG TABLET PO (10:50)
[2021-12-03] MEDS: atenoloL 50 MG TABLET 100 MG PO (10:51)
[2021-12-03] MEDS: HEPARIN 5,000 UNIT/ML VIAL 5000 UNIT SUBCUT ×2 (10:51→21:45)
[2021-12-03] MEDS: FUROSEMIDE 20 MG TABLET PO ×2 (10:52→20:02)
[2021-12-03] MEDS: lisinopriL 20 MG TABLET 40 MG PO (10:52)
[2021-12-03] MEDS: SODIUM CHLORIDE 0.9% FLUSH 10 ML IV ×2 (10:53→21:46)
--- NOTE | 2021-12-03 11:00 | CM.DPC ---
Addendum entered by NEPTALI Hughes 12/03/21 15:09: ADD: Return call from Maverick at [facility] and pt is out of network due to his permanent address being [place] and therefore around $1200 a week for 6 weeks. Recommended trying [facility] since they are a nation wide agency and might be considered in-network. JEREMY called [facility] and left msg and faxed referral requesting review for coverage. JEREMY met bedside with pt and spouse and explained role and discussed above. Awaiting return call from [facility] to determine if pt has coverage for home infusion. SW discussed backup options of out of pocket paying for home infusion, going back to [place] and doing home infusion there with an in-network provider, going to SNF for IV-Abx under [employer] MCR, staying in [place] and going to outpt infusion clinic. Pt and spouse hopeful for [facility] with home infusion but will discuss other options in case [facility] not covered by insurance. JEREMY updated RN and LEAD BURNER SUPERVISOR. BF Addendum entered by NEPTALI Hughes 12/03/21 14:06: ADD: Per Ortho, recommending IV-Abx Levaqmariah and Vanco for d/c and outpt follow up. Per RN, DI RN notified for PICC placement today. JEREMY called [facility] and updated on above and faxed MAR to review and run for coverage and some concern that pt's permanent address is [place] and therefore [facility] may be considered out of network and will need to determine if any out of pocket expense. [facility] also may not be able to do the teaching until Fri12/05/21 this week but will review their schedule as pt would be discharging to [facility] which is a barrier to more teaching options and pt would need [facility] to follow for ongoing PICC care. JEREMY made [facility] referral and awaiting [facility] review and coverage for medications. SW also left msg for [facility] [address] to determine if they have the capability to provide outpt infusion Q24 and Q48. BF Original Note: DCP Cont: Per , Ortho consult placed for today towards determining possible surgical intervention for further amputation vs abx (may even be oral for 3 months a f/u with his Surgeon in [place] vs IV-Abx with Ortho following for management). JEREMY faxed referral to [facility] in case IV-Abx needed for review and coverage from insurance and spoke to Maverick and updated on even possible amputation or oral abx. Inf Rupinder will continue to follow and await Ortho Consult to determine POC. Pt's spouse has been rooming in and per RN pt has been independent in room and with ambulation. Plan: SW to follow closely for Ortho Consult for POC of surgery vs abx and discharge planning needs and keeping [facility] updated. NEPTALI Hughes
--- NOTE | 2021-12-03 11:07 | PM.PN.1 ---
Subjective Subjective Date Patient Seen: 12/03/21 Time Patient Seen: 11:07 Interval history: Matty Valero is a 75-year-old male admitted for problems with his left 3rd toe. He is visiting from [facility] and was in [facility] when he saw a reading interventionist to debrided his toe. He followed up 10 days later and was told that he needed to continue taking antibiotics for another 10 days. He arrives in [facility] and has increased swelling in his left 3rd toe and was admitted 2 nights ago. He has had a history of having multiple toes amputated and asked me if he can have this done on an outpatient basis and discharged today. He currently does not have any feeling in that toe due to his diabetes although he stated last night it bothered him and Tylenol seem to relieve his pain. Per the patient's nurse, orthopedic surgery saw him and has deemed that his osteomyelitis is not as bad and does not warrant amputation and has recommended that the patient have a PICC line placed and he received antibiotics for 6 weeks. Exam Vital Signs (past 8 hours): - 12/03/21 05:00 12/03/21 07:00 12/03/21 09:16 Temperature 98.4 F 97.7 F Pulse Rate 67 65 Respiratory Rate 16 18 Blood Pressure 121/57 L 120/58 L Pulse Oximetry 99 96 100 Oxygen Delivery Method Room Air Oxygen Flow Rate 0 0 Oxygen Delivery Method Room Air Oxygen Flow Rate 0 Narrative Exam Narrative: Gen: Alert, oriented, morbidly obese 75 y.o. male, NAD HEENT: normocephalic, atraumatic, conjunctiva clear, sclera non-icteric, oral mucosa pink and moist Neck: supple, full ROM, no JVD, trachea is midline Resp: Lungs CTA, non-labored breathing CV: RRR, no murmur or rubs Abd: soft, non-tender, normoactive BTs Skin: no lesions or rashes, dry and intact Neuro: Alert and oriented X 4 w/no focal deficits. Speech clear and coherent. Extremities: Left 3rd toe is crusted over with no erythema. He has multiple amputated toes on the right foot. Is normally ambulatory, negative Neo?s sign Psyche: normal mood and affect. Objective Labs Result Diagrams: 12/03/21 05:30 12/03/21 05:30 Labs: Laboratory Results - last 24 hr 12/02/21 12/02/21 12/02/21 05:39 16:00 16:40 WBC RBC Hgb Hct MCV MCH MCHC RDW Plt Count Neut % (Auto) Lymph % (Auto) [place] % (Auto) Eos % (Auto) Baso % (Auto) Neut # (Auto) Lymph # (Auto) [place] # (Auto) Eos # (Auto) Baso # (Auto) PT INR Sodium Potassium Chloride Carbon Dioxide BUN Creatinine Estimated GFR BUN/Creatinine Ratio Glucose Hemoglobin A1c 7.5 H Calcium Nasal Screen MRSA (PCR) Negative for mrsa Vancomycin Trough 7.8 L 12/03/21 12/03/21 12/03/21 05:30 05:30 05:30 WBC 5.8 RBC 3.84 L Hgb 11.7 L Hct 35.2 L MCV 91.6 MCH 30.6 MCHC 33.3 RDW 14.7 Plt Count 164 Neut % (Auto) 59.3 Lymph % (Auto) 26.6 [place] % (Auto) 9.5 Eos % (Auto) 4.2 H Baso % (Auto) 0.4 Neut # (Auto) 3400 Lymph # (Auto) 1500 [place] # (Auto) 600 Eos # (Auto) 200 Baso # (Auto) 0 PT 13.2 H INR 1.2 Sodium 138 Potassium 4.6 Chloride 111 H Carbon Dioxide 19 L BUN 38 H Creatinine 1.75 H Estimated GFR 40 L BUN/Creatinine Ratio 21.7 Glucose 91 Hemoglobin A1c Calcium 8.9 Nasal Screen MRSA (PCR) Vancomycin Trough [facility] Surgical History (Updated 12/03/21 @ 11:11 by ROSHAN Bledsoe) 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 Valero is a 75 male with PMH DM, morbid obesity, CKD, LUIS who presents with left toe infection consistent with osteomyelitis 1. Acute osteomyelitis -left 3rd toe infection, with radiographic findings consistent with osteomyelitis -continue vancomycin, ceftriaxone - MRI reported distal, middle, and proximal phalanx osteomyelitis with a normal 3rd metatarsal -Artieral doppler reported ?an element of distal peripheral vascular disease? -ESR, CRP ordered -pending results decision will need to be done to determine if six weeks of abx vs amputation is clinically appropriate -surgery has declined to do his amputation and recommends insertion of a PICC line and 6 weeks of antibiotics, this will be further followed up today. 2. 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 Morbid obesity -encourage weight loss -would help diabetes control to help manage complications 4. Hypertension -continue wendy inhibitor and beta-augusto 5. CKD stage 3 -creatinine at baseline with patient stating gfr is in 30s, today it is improving at 1.75 with an EGFR 40 -monitor closely 6. Hyperlipidemia -continue statin 7. LUIS -continue CPAP CODE: Full Proxy: Beti Valero I have utilized all avaialble resources to reconcile the patient's home medications COVID-19 COVID-19 status: Negative Result date/Date tested (Pos, Neg/Pending): 12/01/21 Quality VTE Deep Vein Thrombosis/Pulmonary Embolism Present on Admission: No MIPS - Admit I confirm the patient?s Advance Care Plan is present, Code status is documented, Surrogate decision maker is in patient?s record [If Yes, STOP here]: Yes MIPS - DC The patient has current or prior documentation of left ventricular ejection fraction (LVEF) less than 40%, or moderate or severely depressed left ventricular systolic function.: No
[2021-12-03] MEDS: levoFLOXacin 750 MG/150 ML PIGGYBACK 100 MG IV (14:00)
--- NOTE | 2021-12-03 14:54 | DI.RAD.S_ITS ---
PROCEDURE: XR CHEST FOR PICC 1V INDICATIONS: osteomylitis COMPARISON: None. FINDINGS: PICC was placed by the intravenous therapy team from the right side. Fluoroscopic spot film demonstrates the tip of PICC projecting to the area of mid SVC. IMPRESSION: Tip of PICC projects to the area of mid SVC. Dictated by: Leonie Hinson M.D. on 12/04/2021 at 11:42 Approved by: Leonie Hinson M.D. on 12/04/2021 at 11:43
--- NOTE | 2021-12-03 15:10 | PM.CN ---
History of Present Illness Consult details Date Patient Seen: 12/03/21 Time Patient Seen: 10:30 Chief complaint: Bad 3rd toe on left foot Reason for consult: left 3rd toe possible infection Requesting provider: Carmen Hardy Narrative: Mr. Starr is a 75 yo M with diabetes and 1 month history of worsening swelling to his left third toe. He had 2 right toe amputation in the past with the same medical issue. He was seen by his bell person and he some debridement done 3 weeks ago. Meds Home Medications and Allergies Home Medications Medication Instructions Recorded Confirmed Type allopurinol 300 mg tablet 300 mg PO DAILY 12/01/21 12/02/21 History allopurinol 300 mg tablet tab PO DAILY 12/01/21 History atenolol 100 mg tablet mg 12/01/21 History atenolol 100 mg tablet tab PO DAILY 12/01/21 History blood sugar diagnostic (OneTouch 12/01/21 12/01/21 History Ultra Test strips) calcitriol 0.25 mcg capsule cap 12/01/21 History dulaglutide 4.5 mg/0.5 mL ea SUBCUT QWEEK 12/01/21 History subcutaneous pen injector (Trulicity) furosemide 20 mg tablet tab 2XD 12/01/21 History gabapentin 100 mg capsule cap PO 1XD 12/01/21 History hydrocodone 7.5 mg-acetaminophen tab PO PRN PRN Abdominal Discomfort 12/01/21 History 325 mg tablet insulin glargine 100 unit/mL (3 25 unit SUBCUT BEDTIME 12/01/21 12/01/21 History mL) subcutaneous pen (Lantus Solostar U-100 Insulin) pravastatin 40 mg tablet tab PO BEDTIME 12/01/21 History quinapril 40 mg tablet tab PO DAILY 12/01/21 History Allergies Allergy/AdvReac Type Severity Reaction Status Date / Time No Known Drug Allergies Allergy Verified 12/01/21 12:40 Exam Vital Signs (past 8 hours): - 12/03/21 09:16 Temperature 97.7 F Pulse Rate 65 Respiratory Rate 18 Blood Pressure 120/58 L Pulse Oximetry 100 Oxygen Delivery Method Room Air Oxygen Flow Rate 0 Extrem Other: left third toe with increased size, small wound w/o drainage, no erythema, no palable flucturation/induration on exam. Non-tender to palpation. Objective Labs Result Diagrams: 12/03/21 05:30 12/03/21 05:30 Labs: Laboratory Results - last 24 hr 12/02/21 12/02/21 12/03/21 16:00 16:40 05:30 WBC 5.8 RBC 3.84 L Hgb 11.7 L Hct 35.2 L MCV 91.6 MCH 30.6 MCHC 33.3 RDW 14.7 Plt Count 164 Neut % (Auto) 59.3 Lymph % (Auto) 26.6 [place] % (Auto) 9.5 Eos % (Auto) 4.2 H Baso % (Auto) 0.4 Neut # (Auto) 3400 Lymph # (Auto) 1500 [place] # (Auto) 600 Eos # (Auto) 200 Baso # (Auto) 0 PT INR Sodium Potassium Chloride Carbon Dioxide BUN Creatinine Estimated GFR BUN/Creatinine Ratio Glucose Calcium Nasal Screen MRSA (PCR) Negative for mrsa Vancomycin Trough 7.8 L 12/03/21 12/03/21 05:30 05:30 WBC RBC Hgb Hct MCV MCH MCHC RDW Plt Count Neut % (Auto) Lymph % (Auto) [place] % (Auto) Eos % (Auto) Baso % (Auto) Neut # (Auto) Lymph # (Auto) [place] # (Auto) Eos # (Auto) Baso # (Auto) PT 13.2 H INR 1.2 Sodium 138 Potassium 4.6 Chloride 111 H Carbon Dioxide 19 L BUN 38 H Creatinine 1.75 H Estimated GFR 40 L BUN/Creatinine Ratio 21.7 Glucose 91 Calcium 8.9 Nasal Screen MRSA (PCR) Vancomycin Trough [facility] Surgical History (Updated 12/03/21 @ 11:11 by ROSHAN Bledsoe) 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 Valero is being seen for his left 3rd toe. His MRI shows increased uptake of contrast concerning for early osteomyelitis. There is no abscess or wound to debride. I recommend IV antibiotics for treatment of osteomyelitis per ID protocol. He does not have surgical indications at this time. I recommend follow up with our clinic in two weeks and request appointment with Dr. Avina, our foot and ankle specialist for additional evaluation and recommendation. He may weight bear as tolerated in the mean time. Time Spent With Patient Critical Care time: I spent a total of [] minutes of critical care time on this patient's care today; this time is exclusive of procedural time.
--- NOTE | 2021-12-03 19:36 | PC.NURSE ---
patient NPO this AM for amputation of Left foot middle toe for osteomyelitis. Dr Kern consulted: d/c npo, recommends place picc, do iv abx on outpatient basis. patient lives [place], and barriers to d/c are no infusion services in his network while at [place]. patient and Beti live in [place] in winter months, and voiced preference to have picc placed, d/c to [facility]/stay another day to receive abx , vs fly to [place] and receive tx there. patient is a retired RN, preferred to give my own infusion, just give me a pump and i can do it myself. i will sign a waiver discharge planners aware of above info, they will f/u in AM. Picc placed to [facility] by LUIZ Stubbs. she was instrumental at spending time providing listening support to patient and notified nursing of patient's final preference. PICC abx tonight. set up d/c for tomorrow (either to [facility], or fly home to [place]) d/c planners have gone for the day but they will f/u w/ him in the morning. patient and are aware of all above info, and thanked us for our care. daughter of patient is also an RN and lives in [place], and will be assisting her dad as needed w/ this treatment. patient expressed desire to have 6 weeks of IV abx, and then PO. is aware of above info, she will f/u w/ ID, discharge planners.
[2021-12-03 20:00] VITALS: BP 135/55; PULSE 72; RESP 18; TEMP 36.6; O2SAT 98
[2021-12-03] MEDS: VANCOMYCIN 1,250 MG/250 ML PIGGYBACK 250 MG IV (20:01)
[2021-12-03] MEDS: PRAVASTATIN 20 MG TABLET 40 MG PO (21:45)
[2021-12-03] MEDS: GABAPENTIN 100 MG CAPSULE PO (21:45)
[2021-12-03] MEDS: INSULIN GLARGINE 100 UNIT/ML 3ML PEN 25 UNIT SUBCUT (22:22)
[2021-12-03] MEDS: INSULIN LISPRO 100 UNIT/ML 3ML VIAL SUBCUT (22:23)
[2021-12-04 05:41] LABS: Add Manual Diff / Slide Review NO; Basophils Absolute Auto 0 /uL (0-100); Basophils Percent Auto 0.4 % (0-2); Eosinophils Absolute Auto 200 /uL (0-450); Eosinophils Percent Auto 2.7 % (2-4); Hematocrit 36.5 % (41-53); Hemoglobin 12.3 g/dL (13.5-17.5); Lymphocytes Absolute Auto 1100 /uL (1100-4500); Lymphocytes Percent Auto 16.2 % (25-40); Mean Corpuscular HGB Conc 33.6 % (30-36); Mean Corpuscular Hemoglobin 30.7 PG (26-34); Mean Corpuscular Volume 91.4 fL (80-100); Monocytes Absolute Auto 600 /uL (0-900); Monocytes Percent Auto 9.1 % (3-14); Neutrophils Absolute Auto 5000 /uL (1500-7000); Neutrophils Percent Auto 71.6 % (50-75); Platelet Count 154 X10^3/uL (150-400); Red Cell Distribution Width 14.4 % (11.6-14.8)
[2021-12-04 06:00] VITALS: BP 159/80; PULSE 70; RESP 16; TEMP 36.2; O2SAT 97
[2021-12-04 06:20] LABS: BUN Creatinine Ratio 19.1 (6-22); Blood Urea Nitrogen 35 mg/dL (9-20); Calcium 8.8 mg/dL (8.4-10.2); Carbon Dioxide 22 mmol/L (22-32); Chloride 108 mmol/L (98-107); Estimated Glomerular Filt Rate 38 mL/min (>60); Glucose 120 mg/dL (80-110); HEMOLYSIS < 15 (0-50); Potassium 4.7 mmol/L (3.4-5.1); Sodium 138 mmol/L (137-145)
[2021-12-04 09:12] VITALS: BP 159/70; PULSE 70
[2021-12-04] MEDS: atenoloL 50 MG TABLET 100 MG PO (09:12)
[2021-12-04] MEDS: lisinopriL 20 MG TABLET 40 MG PO (09:12)
[2021-12-04] MEDS: allopurinoL 300 MG TABLET PO (09:12)
[2021-12-04] MEDS: FUROSEMIDE 20 MG TABLET PO (09:12)
[2021-12-04] MEDS: HEPARIN 5,000 UNIT/ML VIAL 5000 UNIT SUBCUT (09:12)
[2021-12-04] MEDS: SODIUM CHLORIDE 0.9% FLUSH 10 ML IV (09:13)
[2021-12-04] MEDS: INSULIN LISPRO 100 UNIT/ML 3ML VIAL SUBCUT ×2 (09:13→11:47)
[2021-12-04 11:28] VITALS: BP 111/53; PULSE 74; RESP 18; TEMP 35.5; O2SAT 96
--- NOTE | 2021-12-04 12:12 | PM.PN.1 ---
Subjective Subjective Date Patient Seen: 12/04/21 Time Patient Seen: 12:17 Interval history: Patient has minimal left 3rd toe pain. He has a history of diabetes and peripheral neuropathy. He is currently on IV Levaquin and vancomycin. He denies any fevers, chills, night sweats. Exam Vital Signs (past 8 hours): - 12/04/21 06:00 12/04/21 09:12 12/04/21 11:28 Temperature 97.1 F L 96 F L Pulse Rate 70 70 74 Respiratory Rate 16 18 Blood Pressure 159/80 H 159/70 H 111/53 L Pulse Oximetry 97 96 Oxygen Flow Rate 0 0 Oxygen Delivery Method Room Air Oxygen Flow Rate 0 Narrative Exam Narrative: Pleasant 75-year-old male, resting comfortably in his chair, no acute distress. No dressing in place, no open wound, there was extensive keratosis of the nail and callus formation. There is no fluctuance or erythema noted. Toe is nontender to palpation. Bilateral lower extremity: Motor functions are grossly intact, sensation is intact to light touch throughout, calves are soft and nontender palpation. 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 Valero is being seen for his left 3rd toe. -His MRI shows increased uptake of contrast concerning for early osteomyelitis. -There is no abscess or wound to debride. -Continue IV antibiotics for treatment of osteomyelitis per ID protocol. The patient was apparently trying to arrange IV antibiotics at his summer home on [place], but was having difficulty with infusion solutions. Therefore, he has decided to fly back to [place]. He has a follow-up appointment with his primary care this coming Friday. Apparently in the meantime, he will likely need to go on oral antibiotics as our team will be unable to arrange IV antibiotics in [place]. -He does not have surgical indications at this time. -He may weight bear as tolerated in the mean time. -he is requesting a copy of his imaging and records so he can bring it with him to [place]. He will follow up with his primary care there, encouraged to follow-up with an orthopedic foot and ankle specialist once in [place]. If the patient is still in a area, he may follow up with Dr. Sauer, our foot and ankle specialist, in 10-14 days. Time Spent With Patient Critical Care time: I spent a total of [] minutes of critical care time on this patient's care today; this time is exclusive of procedural time. Quality VTE Deep Vein Thrombosis/Pulmonary Embolism Present on Admission: No
[2021-12-04] MEDS: VANCOMYCIN 1,250 MG/250 ML PIGGYBACK 250 MG IV (12:23)
[2021-12-04 12:42] VITALS: BP 113/54; PULSE 70; RESP 18; TEMP 36.4; O2SAT 98
--- NOTE | 2021-12-04 13:26 | CM.DPC ---
DCP Discharge Home Per MD and Ortho, pt preference is to d/c today after IV-Abx dose so that he can fly back to [place] tomorrow for f/u with his in-network providers and will be on oral Abx until he gets to [place]. JEREMY called [facility] again and left another msg to f/u on the referral faxed yesterday to see if pt has coverage for home infusion and still no return call. JEREMY called [facility] and updated that pt will not be using their services for private pay. JEREMY called [facility] and spoke to LUIZ Reaves and cancelled the referral faxed this morning for outpt infusion. JEREMY met bedside with pt and he confirms that he has two sons that just flew into [place] and spouse down picking them up and they will assist with getting pt to [facility] and packed for flight to [place] tomorrow 12/05/21 for medical care. Pt plans to get his oral abx scripts filled at his local pharmacy on [facility] tomorrow morning before leaving for his flight. Plan: Patient to d/c home today on oral abx via family POV and flight to [place] tomorrow for ongoing IV-Abx needs. NEPTALI Hughes
--- NOTE | 2021-12-04 15:57 | PC.NURSE ---
Discharge Note Patient A&O, VSS, no complaint of pain/discomfort. Patient agreeable to discharge plan. Discharge packet reviewed with patient all questions/concerns addressed. PIV discontinued. PICC kept in place and hep-locked by this RN. 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 Written prescriptions given to patient and reminded to take to preferred pharmacy to be filled. Priority boarding pass also obtained and given to patient. Patient able to dress self and pack all belongings. Patient taken down via wheelchair to POV.
--- NOTE | 2021-12-04 16:05 | PM.DS.1 ---
History of Present Illness History of Present Illness Date Patient Seen: 12/04/21 Time Patient Seen: 21:00 Chief complaint: Bad 3rd toe on left foot Narrative: Mr. Valero is a 75M with PMH TYpe 2 DM with peripheral neuropathy, s/p multiple amputations of digits for osteomyelitis, PAD, morbid obesity, HTN, CKD stage 3, LUIS who presents with infected left 3rd toe. He states approximately one month ago he developed a blister on his left 3rd toe. He has two partial digit amputations on both his left and right feet. He had this blister debrided. He then stubbed his toe soon after that and developed an injury to his toe. He is from [place], and has received his primary care there, but this injury has occurred while traveling and he saw a ballet company member in [place]. He has received two separate 10 day prescriptions, possibly of Keflex, for an infected toe. He has not noted any significant change in his toe. [place] was concerned for continued infection and recommended he come to the ED. He has not noted any fevers/chills. No nausea, vomiting. No toe pain or discharge In the ED workup was done, vitals with no fever. Labs notable for WBC 7.6, hgb 12.2, plts 180. Na 138, BUN 43, creatinine 2.02. Procalcitonin 0.17. Toe xray shows focal rarefaction of the distal 3rd phalanx. He was ordered for antibiotics and admitted for further treatment. Discharge Providers Provider Date of admission: 12/01/21 17:38 Discharge Date: 12/04/21 Primary care physician: Dr. Chris Lei Phone - [phone] Consults: 12/01/21 19:53 Consult to Physical Therapy Evaluate & Treat Comment: Physician Instructions: Evaluate and Treat 12/01/21 21:50 Consult to Respiratory Therapy Evaluate & Treat Comment: cpap PM please Physician Instructions: Evaluate and treat 12/02/21 12:11 Consult to Orthopedic Surgery Routine Comment: Consulting Provider: Sebastian Kern Reason for consultation: L 3rd toe osteomyelitis Has provider been notified: Yes Discharge provider: Daysi Peterson MD Summary Hospital Course Discharge Diagnosis: Acute Osteomyelitis of the left 3rd toe Poorly controlled insulin-dependent type 2 diabetes Hypertension, essential, controlled Hyperlipidemia Morbid obesity with a BMI of 41 Status at Discharge Cognitive/behavioral status at discharge: oriented Functional status at discharge: independent ambulation Overall status at discharge: patient is progressing back to baseline Time Spent with Patient Time spent: Greater than 30 minutes Exam Vital Signs (past 8 hours): - 12/04/21 09:12 12/04/21 11:28 12/04/21 12:42 Temperature 96 F L 97.5 F L Pulse Rate 70 74 70 Respiratory Rate 18 18 Blood Pressure 159/70 H 111/53 L 113/54 L Pulse Oximetry 96 98 Oxygen Flow Rate 0 4 Oxygen Delivery Method Room Air Oxygen Flow Rate 4 Narrative Exam Narrative: Toe looks dry, no obvious discharge, no abscess, not tender. Patient was able to walk to his back without any problem. Independent. Under exam seems to be within normal limits. Amputated toes noted on the right lower extremity. 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 Valero is a 75 male with PMH DM, morbid obesity, CKD, LUIS who presents with left toe infection consistent with osteomyelitis 1. Acute osteomyelitis -left 3rd toe infection, with radiographic findings consistent with osteomyelitis -continue vancomycin, ceftriaxone Patient wanted to return to [place], get IV antibiotics there, risk and benefits extensively discussed. Patient has a scheduled flight tomorrow confirmed, planning to go back to his primary care doctor to get this figured out. Prescribed Levaquin and doxycycline to cover for the next 24 hours also got his last dose of vancomycin today at 2:00 p.m.. - MRI reported distal, middle, and proximal phalanx osteomyelitis with a normal 3rd metatarsal -Artieral doppler reported ?an element of distal peripheral vascular disease? 2. 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 Morbid obesity -encourage weight loss -would help diabetes control to help manage complications 4. Hypertension -continue wendy inhibitor and beta-augusto 5. CKD stage 3 -creatinine at baseline with patient stating gfr is in 30s, today it is improving at 1.75 with an EGFR 40 -monitor closely 6. Hyperlipidemia -continue statin 7. LUIS -continue CPAP Discharge Plan Discharge Plan Patient Disposition: Home Provider Discharge Comment: Discussed importance of getting Follow up with PCP in [place] tomorrow to get IV antibiotics. Nursing Discharge Comment: DC after IV Vanco and explain DC follow up. Discharge orders & Medications Prescriptions: New levofloxacin 750 mg tablet 750 mg PO Q48H Qty: 4 0RF doxycycline hyclate 100 mg tablet 100 mg PO BID 7 Days Qty: 14 0RF Continued allopurinol 300 mg tablet PO DAILY atenolol 100 mg tablet PO DAILY calcitriol 0.25 mcg capsule furosemide 20 mg tablet 2XD Label Comments: TAKE 1 TABLET BY MOUTH TWICE A DAY gabapentin 100 mg capsule PO 1XD Label Comments: TAKE 1 CAPSULE BY MOUTH EVERYDAY AT BEDTIME hydrocodone-acetaminophen 7.5-325 mg tablet PO PRN PRN (Reason: Abdominal Discomfort) Label Comments: TAKE 1 TO 2 TABLETS BY MOUTH EVERY 6 HOURS NEEDED FOR PAIN insulin glargine [Lantus Solostar U-100 Insulin] 100 unit/mL (3 mL) insulin pen 25 unit SUBCUT BEDTIME (DME) OneTouch Ultra Test Strip MISCELLANEOUS pravastatin 40 mg tablet PO BEDTIME quinapril 40 mg tablet PO DAILY Trulicity 4.5 mg/0.5 mL pen injector SUBCUT QWEEK Label Comments: INJECT 0.5ML SUBCUTANEOUS EVERY 7 DAYS allopurinol 300 mg tablet 300 mg PO DAILY Discontinued atenolol 100 mg tablet Medication counseling provided by Pharmacist: Yes Discharge Health Status Multidrug resistant organism: No MDRO Diet/Activity/Treatments Diet: Carb-consistent/Diabetic Skin/Wound/Dressing Care Report to your healthcare provider any signs of infection, such as:: chills, fever, night sweats, increased pain, unusual drainage and unusual redness Quality VTE Deep Vein Thrombosis/Pulmonary Embolism Present on Admission: No
== END 2021-12-04 14:00 | disposition home or self-care (01) | DRG 638 ==
LOC: ED 17:27 → AC 17:39
PROVIDERS: Internal Medicine; Student in an Organized Health Care Education/Training Program; Admitting Provider Family Medicine; Emergency Provider Registered Nurse; Referring Provider Registered Nurse; Visit Provider Family Medicine
DX: E11.69 Type 2 diabetes mellitus with other specified complication (principal); M86.8X7 Other osteomyelitis, ankle and foot; Z68.41 Body mass index [BMI] 40.0-44.9, adult; E11.40 Type 2 diabetes mellitus with diabetic neuropathy, unspecified; E66.01 Morbid (severe) obesity due to excess calories; E11.621 Type 2 diabetes mellitus with foot ulcer; L97.529 Non-pressure chronic ulcer of other part of left foot with unspecified severity; I12.9 Hypertensive chronic kidney disease with stage 1 through stage 4 chronic kidney disease, or unspecified chronic kidney disease; E11.22 Type 2 diabetes mellitus with diabetic chronic kidney disease; N18.30 Chronic kidney disease, stage 3 unspecified; Z20.822 Contact with and (suspected) exposure to COVID-19; E11.51 Type 2 diabetes mellitus with diabetic peripheral angiopathy without gangrene; Z79.4 Long term (current) use of insulin; G47.33 Obstructive sleep apnea (adult) (pediatric)
CPT/HCPCS: 36415; 36573; 73660; 73718; 80048; 80053; 80202; 82962; 83036; 83605; 84145; 85025; 85610; 85651; 86140; 87040; 87635; 87797; 93926; 96365; 96366; 99284; C9803; J0696; J1644; J1815; J1956

== ENCOUNTER → 2023-12-09 12:59 | Outpatient (CLI) | payer MEDICARE, SELFPAY | PROVIDERS: PCP Physician Assistant; Referring Provider Physician Assistant; Visit Provider Surgery | DX: E11.621 Type 2 diabetes mellitus with foot ulcer (principal); E11.42 Type 2 diabetes mellitus with diabetic polyneuropathy; L97.422 Non-pressure chronic ulcer of left heel and midfoot with fat layer exposed; R60.0 Localized edema; L84 Corns and callosities; R23.3 Spontaneous ecchymoses; I73.9 Peripheral vascular disease, unspecified; I87.2 Venous insufficiency (chronic) (peripheral); I25.10 Atherosclerotic heart disease of native coronary artery without angina pectoris; Z79.01 Long term (current) use of anticoagulants; Z79.2 Long term (current) use of antibiotics | CPT/HCPCS: 11042; 87070; 87075; 87205; 99204; 99214 ==

== ENCOUNTER → 2023-12-09 14:56 | Outpatient (CLI) | payer MEDICARE, SELFPAY ==
--- NOTE | 2023-12-09 14:59 | DI.RAD.S_ITS ---
PROCEDURE: XR FOOT LT MIN 3V INDICATIONS: eval for osteo TECHNIQUE: 3 views of the foot were acquired. COMPARISON: None. FINDINGS: Bones: No fractures or dislocations. No suspicious bony lesions. There are multiple areas of osteopenia throughout the tarsal bones and base of the metatarsal bones. The distal phalanx of the 1st toe is absent. Multiple degenerative changes of the tarsal joints, MTP joint and the DIP joints. Enthesophytes along the plantar and dorsal aspect of the calcaneus. Soft tissues: There is diffuse soft tissue swelling of the foot. Achilles tendon appears normal. There are vascular calcifications. IMPRESSION: There are multiple areas of osteopenia involving the tarsal bones and base of the metatarsal bones. Findings are concerning for osteomyelitis. Dictated by: Deirc Vasques M.D. on 12/09/2023 at 16:46 Approved by: Deric Vasques M.D. on 12/09/2023 at 16:52
[2023-12-09 16:09] LABS: Add Manual Diff / Slide Review NO; Basophils Absolute Auto 0 /uL (0-100); Basophils Percent Auto 0.4 % (0-2); Eosinophils Absolute Auto 100 /uL (0-450); Eosinophils Percent Auto 2.5 % (2-4); Hematocrit 29.2 % (41-53); Hemoglobin 9.7 g/dL (13.5-17.5); Lymphocytes Absolute Auto 1000 /uL (1100-4500); Lymphocytes Percent Auto 17.5 % (25-40); Mean Corpuscular HGB Conc 33.3 % (30-36); Mean Corpuscular Hemoglobin 31.4 PG (26-34); Mean Corpuscular Volume 94.4 fL (80-100); Monocytes Absolute Auto 400 /uL (0-900); Monocytes Percent Auto 7.7 % (3-14); Neutrophils Absolute Auto 4100 /uL (1500-7000); Neutrophils Percent Auto 71.9 % (50-75); Platelet Count 165 X10^3/uL (150-400); Red Blood Cell Count 3.09 X10^6/uL (4.5-5.9); Red Cell Distribution Width 13.8 % (11.6-14.8); White Blood Cell Count 5.7 X10^3/uL (4.5-11.0)
[2023-12-09 16:31] LABS: Erythrocyte Sedimentation Rate 41 MM/HR (0-15)
[2023-12-09 17:54] LABS: Alanine Aminotransferase 16 IU/L (<50); Albumin 3.7 g/dL (3.5-5.0); Albumin Globulin Ratio 1.5 (1.0-2.8); Alkaline Phosphatase 78 U/L (38-126); Aspartate Aminotransferase 19 IU/L (17-59); BUN Creatinine Ratio 17.3 (6-22); Bilirubin Total 0.6 mg/dL (0.2-1.3); Blood Urea Nitrogen 39 mg/dL (9-20); C-Reactive Protein Quant 0.8 mg/dL (<1.0); Calcium 8.9 mg/dL (8.4-10.2); Carbon Dioxide 23 mmol/L (22-32); Chloride 110 mmol/L (98-107); Estimated Glomerular Filt Rate 29 mL/min (>60); Globulin 2.4 g/dL (1.7-4.1); Glucose 218 mg/dL (80-110); HEMOLYSIS < 15 (0-50); Potassium 5.2 mmol/L (3.4-5.1); Sodium 139 mmol/L (137-145); Total Protein 6.1 g/dL (6.3-8.2)
[2023-12-10 02:54] LABS: Hemoglobin A1C% w Est Avg Glu 6.5 % (4.0-6.0)
== END ==
PROVIDERS: PCP Physician Assistant; Referring Provider Surgery; Visit Provider Surgery
DX: E11.621 Type 2 diabetes mellitus with foot ulcer (principal); L97.529 Non-pressure chronic ulcer of other part of left foot with unspecified severity; M85.872 Other specified disorders of bone density and structure, left ankle and foot; E11.42 Type 2 diabetes mellitus with diabetic polyneuropathy; L97.422 Non-pressure chronic ulcer of left heel and midfoot with fat layer exposed; R60.0 Localized edema; L84 Corns and callosities; R23.3 Spontaneous ecchymoses; I73.9 Peripheral vascular disease, unspecified; I87.2 Venous insufficiency (chronic) (peripheral); I25.10 Atherosclerotic heart disease of native coronary artery without angina pectoris; Z79.01 Long term (current) use of anticoagulants; Z79.2 Long term (current) use of antibiotics
CPT/HCPCS: 11042; 36415; 73630; 80053; 83036; 85025; 85651; 86140; 87070; 87075; 87205; 99214

== ENCOUNTER → 2023-12-16 14:25 | Outpatient (CLI) | payer MEDICARE, SELFPAY | LOC: WC 14:26 | PROVIDERS: PCP Physician Assistant; Referring Provider Physician Assistant; Visit Provider Physician Assistant | DX: E11.621 Type 2 diabetes mellitus with foot ulcer (principal); L97.422 Non-pressure chronic ulcer of left heel and midfoot with fat layer exposed; L84 Corns and callosities; R60.0 Localized edema; I73.9 Peripheral vascular disease, unspecified; I87.2 Venous insufficiency (chronic) (peripheral); Z79.01 Long term (current) use of anticoagulants; Z79.2 Long term (current) use of antibiotics | CPT/HCPCS: 11042; 99214 ==

== ENCOUNTER → 2023-12-30 14:49 | Outpatient (CLI) | payer MEDICARE, SELFPAY | LOC: WC 14:50 | PROVIDERS: PCP Physician Assistant; Referring Provider Physician Assistant; Visit Provider Surgery | DX: E11.621 Type 2 diabetes mellitus with foot ulcer (principal); L97.422 Non-pressure chronic ulcer of left heel and midfoot with fat layer exposed; L84 Corns and callosities; R60.0 Localized edema; I73.9 Peripheral vascular disease, unspecified; I87.2 Venous insufficiency (chronic) (peripheral); M86.172 Other acute osteomyelitis, left ankle and foot; Z79.01 Long term (current) use of anticoagulants; I25.10 Atherosclerotic heart disease of native coronary artery without angina pectoris; Z79.2 Long term (current) use of antibiotics | CPT/HCPCS: 11042; 99213; 99214 ==

== ENCOUNTER → 2024-01-06 13:18 | Outpatient (CLI) | payer MEDICARE, SELFPAY | PROVIDERS: PCP Physician Assistant; Referring Provider Physician Assistant; Visit Provider Surgery | DX: E11.621 Type 2 diabetes mellitus with foot ulcer (principal); L97.522 Non-pressure chronic ulcer of other part of left foot with fat layer exposed; L84 Corns and callosities; R60.0 Localized edema; E11.40 Type 2 diabetes mellitus with diabetic neuropathy, unspecified | CPT/HCPCS: 11042 ==

== ENCOUNTER → 2024-01-07 14:46 | Outpatient (CLI) | payer MEDICARE, SELFPAY ==
--- NOTE | 2024-01-07 16:00 | DI.MRI.S_ITS ---
PROCEDURE: MR FOOT LT WO/W CON INDICATIONS: confirm osteomyelitis TECHNIQUE: Multiphasic, multisequence MRI of the forefoot was performed, before and after intravenous contrast administration. COMPARISON: [facility], MR, MR FOOT LT WO CON, 12/02/2021, 9:20. [facility], CR, XR TOE LT MIN 2V, 12/01/2021, 12:41. [facility], CR, XR FOOT LT MIN 3V, 12/09/2023, 15:01. FINDINGS: Image quality: Excellent. Bones and joints: Severe degenerative change of the midfoot with mild subchondral marrow edema and cystic changes in the midfoot, involving the intertarsal joints and the tarsometatarsal joints. Status post amputation at the 1st proximal phalangeal head. Interval development of a small erosion at the resection margin of the 1st phalangeal head, without adjacent marrow edema, new from prior exam, likely representing sequela of prior osteomyelitis. No T1 hypointensity of the 1st proximal phalanx to suggest active osteomyelitis. Status post amputation at the 2nd and 3rd middle phalanx. Susceptibility artifact between the 2nd and 3rd proximal phalanx, nonspecific. Pain marker is placed plantar to the tibial hallucal sesamoid. There is mild marrow edema of both the tibial and the and the lateral hallucal sesamoid, representing sesamoiditis. There is T1 hypointensity of the distal pole of the fibula hallucal sesamoid, concerning for osteonecrosis. No definitive soft tissue ulceration. Soft tissues: Marked subcutaneous edema of the dorsal foot, extending circumferentially to the 2nd toe. The flexor and the extensor tendons are grossly unremarkable. Severe fatty infiltration of the musculature within the foot. The Lisfranc ligament is intact. No drainable fluid collection. IMPRESSION: 1. Severe degenerative changes in the midfoot. 2. Postprocedure changes as described above. Sequela of prior osteomyelitis at the resection margin of the 1st proximal phalangeal head. 3. 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 Please note in the absence of soft tissue ulceration, osteomyelitis is unlikely. Recommend correlation with physical exam. 4. No osteomyelitis in the left forefoot. Dictated by: Yanira Justin M.D. on 01/08/2024 at 11:54 Approved by: Yanira Justin M.D. on 01/08/2024 at 12:08
== END ==
PROVIDERS: PCP Physician Assistant; Referring Provider Surgery; Visit Provider Surgery
DX: M86.9 Osteomyelitis, unspecified (principal); L97.422 Non-pressure chronic ulcer of left heel and midfoot with fat layer exposed; M25.872 Other specified joint disorders, left ankle and foot; Z89.412 Acquired absence of left great toe; Z89.422 Acquired absence of other left toe(s)
CPT/HCPCS: 73720; A9579

== ENCOUNTER → 2024-01-13 15:46 | Outpatient (CLI) | payer MEDICARE, SELFPAY | PROVIDERS: PCP Physician Assistant; Referring Provider Physician Assistant; Visit Provider Surgery | DX: E11.621 Type 2 diabetes mellitus with foot ulcer (principal); E11.42 Type 2 diabetes mellitus with diabetic polyneuropathy; L97.422 Non-pressure chronic ulcer of left heel and midfoot with fat layer exposed; L84 Corns and callosities; R60.0 Localized edema; I73.9 Peripheral vascular disease, unspecified; I87.2 Venous insufficiency (chronic) (peripheral); Z79.01 Long term (current) use of anticoagulants | CPT/HCPCS: 11042 ==

== ENCOUNTER → 2024-01-21 13:55 | Outpatient (CLI) | payer MEDICARE, SELFPAY | PROVIDERS: PCP Physician Assistant; Referring Provider Physician Assistant; Visit Provider Surgery | DX: L97.422 Non-pressure chronic ulcer of left heel and midfoot with fat layer exposed (principal); E11.42 Type 2 diabetes mellitus with diabetic polyneuropathy; E11.621 Type 2 diabetes mellitus with foot ulcer; I73.9 Peripheral vascular disease, unspecified; I87.2 Venous insufficiency (chronic) (peripheral); L84 Corns and callosities; R60.0 Localized edema; Z79.01 Long term (current) use of anticoagulants | CPT/HCPCS: 11042 ==

== ENCOUNTER → 2024-01-27 14:41 | Outpatient (CLI) | payer MEDICARE, SELFPAY | LOC: WC 14:41 | PROVIDERS: PCP Physician Assistant; Referring Provider Physician Assistant; Visit Provider Surgery | DX: E11.621 Type 2 diabetes mellitus with foot ulcer (principal); E11.42 Type 2 diabetes mellitus with diabetic polyneuropathy; L97.422 Non-pressure chronic ulcer of left heel and midfoot with fat layer exposed; L84 Corns and callosities; R60.0 Localized edema; I73.9 Peripheral vascular disease, unspecified; I87.2 Venous insufficiency (chronic) (peripheral); Z79.01 Long term (current) use of anticoagulants | CPT/HCPCS: 11042; 99213 ==

== ENCOUNTER → 2024-02-03 14:50 | Outpatient (CLI) | payer MEDICARE, SELFPAY | LOC: WC 14:50 | PROVIDERS: PCP Physician Assistant; Referring Provider Physician Assistant; Visit Provider Surgery | DX: E11.621 Type 2 diabetes mellitus with foot ulcer (principal); E11.42 Type 2 diabetes mellitus with diabetic polyneuropathy; L97.422 Non-pressure chronic ulcer of left heel and midfoot with fat layer exposed; L84 Corns and callosities; R60.0 Localized edema; I73.9 Peripheral vascular disease, unspecified; I87.2 Venous insufficiency (chronic) (peripheral); Z79.01 Long term (current) use of anticoagulants | CPT/HCPCS: 11042 ==

== ENCOUNTER → 2024-02-10 13:23 | Outpatient (CLI) | payer MEDICARE, SELFPAY | LOC: WC 13:24 | PROVIDERS: PCP Physician Assistant; Referring Provider Physician Assistant; Visit Provider Surgery | DX: E11.621 Type 2 diabetes mellitus with foot ulcer (principal); E11.42 Type 2 diabetes mellitus with diabetic polyneuropathy; L97.422 Non-pressure chronic ulcer of left heel and midfoot with fat layer exposed; L84 Corns and callosities; R60.0 Localized edema; I73.9 Peripheral vascular disease, unspecified; I87.2 Venous insufficiency (chronic) (peripheral); Z79.01 Long term (current) use of anticoagulants | CPT/HCPCS: 11042 ==

== ENCOUNTER → 2024-02-17 15:22 | Outpatient (CLI) | payer MEDICARE, SELFPAY | PROVIDERS: PCP Physician Assistant; Referring Provider Physician Assistant; Visit Provider Surgery | DX: E11.621 Type 2 diabetes mellitus with foot ulcer (principal); E11.42 Type 2 diabetes mellitus with diabetic polyneuropathy; L97.422 Non-pressure chronic ulcer of left heel and midfoot with fat layer exposed; L84 Corns and callosities; R60.0 Localized edema; I73.9 Peripheral vascular disease, unspecified; I87.2 Venous insufficiency (chronic) (peripheral); Z79.01 Long term (current) use of anticoagulants | CPT/HCPCS: 11042 ==

== ENCOUNTER → 2024-02-23 15:07 | Outpatient (CLI) | payer MEDICARE, SELFPAY | LOC: WC 15:08 | PROVIDERS: PCP Physician Assistant; Referring Provider Physician Assistant; Visit Provider Surgery | DX: E11.621 Type 2 diabetes mellitus with foot ulcer (principal); E11.42 Type 2 diabetes mellitus with diabetic polyneuropathy; L97.422 Non-pressure chronic ulcer of left heel and midfoot with fat layer exposed; L84 Corns and callosities; R60.0 Localized edema; I73.9 Peripheral vascular disease, unspecified; I87.2 Venous insufficiency (chronic) (peripheral) | CPT/HCPCS: 11042 ==

== ENCOUNTER → 2024-03-02 13:06 | Outpatient (CLI) | payer MEDICARE, SELFPAY | LOC: WC 13:06 | PROVIDERS: PCP Physician Assistant; Referring Provider Physician Assistant; Visit Provider Surgery | DX: E11.621 Type 2 diabetes mellitus with foot ulcer (principal); E11.42 Type 2 diabetes mellitus with diabetic polyneuropathy; L97.422 Non-pressure chronic ulcer of left heel and midfoot with fat layer exposed; L84 Corns and callosities; R60.0 Localized edema; I73.9 Peripheral vascular disease, unspecified; I87.2 Venous insufficiency (chronic) (peripheral); Z79.01 Long term (current) use of anticoagulants | CPT/HCPCS: 11042; 99213 ==